=== PATIENT | female | born 1980 | race Caucasian/White ===

== ENCOUNTER 2019-06-29 11:57 | Emergency (ER) | payer OTHER ==
[~2019-06-29] VITALS: Ht 172.7 cm; Wt 79.8 kg
[~2019-06-29 11:57] MED LIST: ALLERGEN EAR DR15 M1 OT; ANSAID100 MG; AZITHROMYCIN 2250 MG PO; CARISOPRODOL 3350 MG PO; FLOXIN OTI0.3 %/5 M1 OT; NORCO 5-325 TA1 EACH PO; PREDNISONE 20 M20 MG PO; PROAIR HFA8.5 GM INH; ULTRAM 50MG TAB50 MG PO
[2019-06-29] MEDS ORDERED: CHILDREN'S ASPI81 M1 PO (12:11)
[2019-06-29] MEDS ORDERED: NORCO 5-325 TA1 EAC1 PO (13:33)
[2019-06-29 13:45] VITALS: BP 122/71
== END 2019-06-29 13:45 | disposition home or self-care (01) ==
LOC: M.ERS 11:57
DX: S49.82XA Other specified injuries of left shoulder and upper arm, initial encounter (principal); R07.89 Other chest pain; I10 Essential (primary) hypertension; F17.210 Nicotine dependence, cigarettes, uncomplicated; Z88.1 Allergy status to other antibiotic agents; Z88.6 Allergy status to analgesic agent; W18.39XA Other fall on same level, initial encounter; Y93.89 Activity, other specified; Y92.89 Other specified places as the place of occurrence of the external cause; Y99.8 Other external cause status